=== PATIENT | female | born 1985 | race Two or more races ===

== ENCOUNTER 2025-02-02 19:29 | Emergency (ER) | payer MEDICAID, OTHER ==
[~2025-02-02] VITALS: Ht 162.6 cm; Wt 113.4 kg
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
[2025-02-02] MEDS: KETOROLAC TROMETH 30 MG/ML 1ML VIAL IM ONE (21:08)
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
[2025-02-02] MEDS ORDERED: CYCL-837 PO (22:33)
[2025-02-02] MEDS ORDERED: IBUP-1455 PO (22:33)
[2025-02-03 01:19] VITALS: BP 105/74; PULSE 75; RESP 18; TEMP 98.3; O2SAT 99
== END 2025-02-03 01:19 | disposition home or self-care (01) ==
LOC: ER 19:29 → EDBD 19:29 → ER 02-03 01:19
DX: S16.1XXA Strain of muscle, fascia and tendon at neck level, initial encounter (principal); R07.89 Other chest pain; Z79.899 Other long term (current) drug therapy; V49.40XA Driver injured in collision with unspecified motor vehicles in traffic accident, initial encounter; Y93.89 Activity, other specified; Y92.410 Unspecified street and highway as the place of occurrence of the external cause; Y99.8 Other external cause status
CPT/HCPCS: 71046; 72040; 96372; 99284; J1885